=== PATIENT | male | born 2000 | race Two or more races ===

== ENCOUNTER 2022-01-07 14:56 | Emergency (ER) | payer SELFPAY ==
[~2022-01-07] VITALS: Ht 170.2 cm; Wt 69.0 kg
[2022-01-07 16:20] LABS: BASOPHILS % 0.5 % (0.0-2.0); EOSINOPHILS % 1.4 % (0.0-5.0); HEMATOCRIT. 44.4 % (42.0-52.0); HEMOGLOBIN. 14.9 g/dL (14.0-18.0); LYMPHOCYTES % 13.1 % (20.0-50.0); MEAN CORPUSCULAR HEMOGLOBIN 30.2 pg (28.0-32.0); MEAN CORPUSCULAR VOLUME 90.2 fL (80.0-94.0); MEAN PLATELET VOLUME 7.8 fl (7.4-10.4); MONOCYTES % 7.7 % (2.0-8.0); NEUTROPHILS % 77.3 % (40.0-76.0); PLATELET 263 x1000/uL (130-400); RED BLOOD CELL COUNT 4.93 mill/uL (4.7-6.1); RED CELL DISTRIBUTION WIDTH 13.2 % (11.6-14.6)
[2022-01-07 16:29] LABS: CHLORIDE 105 mEq/L (98-107)
[2022-01-07] MEDS: LEVETIRACETAM 500MG PREMIX 100 ML IV ONE (16:33)
[2022-01-07] MEDS: SODIUM CHLORIDE 0.9% 1,000 ML IV ONE (16:34)
[2022-01-07 16:35] LABS: ETHANOL BLOOD < 10 mg/dL
[2022-01-07 17:53] VITALS: BP 103/46
[2022-01-07] MEDS ORDERED: KEPP500 MT (17:57)
== END 2022-01-07 20:52 | disposition home or self-care (01) ==
LOC: ER 14:56
DX: R56.9 Unspecified convulsions (principal)
CPT/HCPCS: 36415; 80053; 80320; 85025; 93005; 96365; 99284; J1953; J7030; G0480

== ENCOUNTER 2022-03-27 18:41 | Emergency (ER) | payer MEDICAID ==
[~2022-03-27] VITALS: Ht 177.8 cm; Wt 75.0 kg
[~2022-03-27 18:41] MED LIST: KEPP500 MT
[2022-03-27] MEDS ORDERED: LEVETIRACETAM 1000MG PREMIX 100 ML IV ONE (19:00)
[2022-03-27 19:30] LABS: BASOPHILS % 0.4 % (0.0-2.0); EOSINOPHILS % 3.7 % (0.0-5.0); HEMATOCRIT. 42.4 % (42.0-52.0); HEMOGLOBIN. 14.7 g/dL (14.0-18.0); LYMPHOCYTES % 14.5 % (20.0-50.0); MEAN CORPUSCULAR HEMOGLOBIN 31.6 pg (28.0-32.0); NEUTROPHILS % 74.4 % (40.0-76.0); PLATELET 242 x1000/uL (130-400); RED BLOOD CELL COUNT 4.66 mill/uL (4.7-6.1); RED CELL DISTRIBUTION WIDTH 12.6 % (11.6-14.6)
[2022-03-27 19:43] LABS: CHLORIDE 104 mEq/L (98-107)
[2022-03-27] MEDS ORDERED: LORAZEPAM 2MG/ML CPJ IV ONE (20:00)
[2022-03-27] MEDS ORDERED: KEPP500 MT (22:02)
[2022-03-28 05:30] VITALS: BP 106/60
== END 2022-03-28 05:33 | disposition home or self-care (01) ==
LOC: ER 18:41
DX: R56.9 Unspecified convulsions (principal)
CPT/HCPCS: 36415; 80053; 82962; 85025; 96365; 96366; 96375; 99291; J1953; J2060

== ENCOUNTER 2022-12-07 14:33 | Emergency (ER) | payer MEDICAID ==
[~2022-12-07] VITALS: Ht 180.3 cm; Wt 86.0 kg
[2022-12-07 14:37] VITALS: BP 124/69
== END 2022-12-07 16:28 | disposition home or self-care (01) ==
LOC: ER 14:43
DX: T16.2XXA Foreign body in left ear, initial encounter (principal); X58.XXXA Exposure to other specified factors, initial encounter
CPT/HCPCS: 99283